=== PATIENT | male | born 1970 | race Two or more races ===

== ENCOUNTER 2023-01-05 10:21 | Emergency (ER) | payer OTHER ==
[~2023-01-05] VITALS: Ht 177.8 cm; Wt 80.3 kg
[2023-01-05] MEDS ORDERED: GLUMETZA500 MG (10:49)
[2023-01-05] MEDS ORDERED: AVAPRO75 MG PO (10:49)
[2023-01-05] MEDS ORDERED: FOLIC ACID0.8 M1 (10:50)
[2023-01-05] MEDS ORDERED: ADULT LOW DOSE81 M1 (10:50)
[2023-01-05] MEDS ORDERED: LIPITOR20 MG PO (10:50)
[2023-01-05] MEDS ORDERED: FARXIGA10 MG PO (10:50)
[2023-01-05] MEDS ORDERED: CLONAZEPAM2 MG PO (10:51)
== END 2023-01-05 14:35 | disposition home or self-care (01) ==
LOC: ER 10:21
DX: N39.0 Urinary tract infection, site not specified (principal); E11.9 Type 2 diabetes mellitus without complications; Z79.84 Long term (current) use of oral hypoglycemic drugs; I10 Essential (primary) hypertension; Z88.8 Allergy status to other drugs, medicaments and biological substances; Z20.822 Contact with and (suspected) exposure to COVID-19

== ENCOUNTER 2024-01-31 12:39 | Emergency (ER) | payer OTHER ==
[~2024-01-31] VITALS: Ht 177.8 cm; Wt 74.8 kg
[~2024-01-31 12:39] MED LIST: ADULT LOW DOSE81 M1; AVAPRO75 MG PO; CLONAZEPAM2 MG PO; FARXIGA10 MG PO; FOLIC ACID0.8 M1; GLUMETZA500 MG; LIPITOR20 MG PO
[2024-01-31] MEDS ORDERED: VASOTEC10 MG (13:02)
== END 2024-01-31 14:13 | disposition home or self-care (01) ==
LOC: ER 12:41
DX: R53.81 Other malaise (principal); K86.89 Other specified diseases of pancreas; Z91.041 Radiographic dye allergy status

== ENCOUNTER 2024-09-24 18:14 | Inpatient (IN) | payer OTHER ==
[~2024-09-24] VITALS: Ht 177.8 cm; Wt 77.1 kg
[~2024-09-24 18:14] MED LIST changes: +VASOTEC10 MG
[2024-09-24] MEDS ORDERED: XIGDUO XR 10 M1 EAC1 PO (18:43)
--- NOTE | 2024-09-24 18:43 | NUR ---
PTE ALERTA Y ORIENTADO X3. REFIERE DOLOR ABDOMINAL DESDE KAREN. SE FAUSTO SV Y SE UBICA
[2024-09-24] MEDS ORDERED: FAMOTIDINE/PF 20 MG in 0.9 % SODIUM CHLORIDE 8 ML IV PUSH STA (18:57)
[2024-09-24] MEDS ORDERED: 0.9 % SODIUM CHLORIDE 1,000 ML IV SCH ×2 (19:00→22:30)
[2024-09-24] MEDS ORDERED: MORPHINE SULFATE 4 MG/ML VIAL IV ONE (19:00)
[2024-09-24] MEDS ORDERED: FAMOTIDINE/PF 20 MG/2 ML VIAL ONE (19:18)
--- NOTE | 2024-09-24 19:27 | NUR ---
SE ORIENTA A PTE SOBRE TX MEDICO,REFIERE ACEPTAR. SE CANALIZA Y SE COLECTAN MUESTRAS DE LAB. SE ADMINSITRAN MEDS ABBIE ORDEN MEDICA, SE NOTIFICA CT PENDIENTE
[2024-09-24 19:35] LABS: HEMATOCRIT 46.9 % (39.0-48.0); HEMOGLOBIN 16.4 g/dL (13-16.00); MEAN CELL VOLUME 85.8 fL (80.0-100.00); MEAN CORPUSCULAR HEMOGLOBIN 30.1 pg (27.00-32.0); MEAN CORPUSCULAR HGB CONC 35.1 g/dl (32.0-36.0); PLATELET COUNT 373 K/uL (150-450); RED BLOOD COUNT 5.46 M/uL (4.00-6.00); RED CELL DISTRIBUTION WIDTH 14.1 % (11.5-14.5)
[2024-09-24 19:46] LABS: ALBUMIN 3.9 gm/dL (3.4-5.0); BILIRUBIN TOTAL 0.41 mg/dL (0.3-1.2); CALCIUM 9.7 mg/dL (8.5-10.1); CREATININE SERUM 0.78 mg/dL (0.70-1.30); GFR 103.34; GLOBULINA 3.8 G/DL (2.4-3.5); POTASSIUM 4.01 mEq/L (3.5-5.1); TOTAL PROTEIN 7.7 gm/dL (6.4-8.2)
[2024-09-24] MEDS ORDERED: PIPERACILLIN/TAZOBACTAM SODIUM 3.375 GM VIAL IV ONE ×2 (21:30→22:24)
[2024-09-24] MEDS ORDERED: FAMOTIDINE/PF 20 MG in 0.9 % SODIUM CHLORIDE 8 ML IV PUSH SCH (22:22)
[2024-09-24] MEDS ORDERED: CLONAZEPAM 1 MG TABLET PO SCH (22:23)
[2024-09-24] MEDS ORDERED: ACETAMINOPHEN 500 MG GEL..CAP PO PRN (22:30)
[2024-09-24] MEDS ORDERED: KETOROLAC TROMETHAMINE 15 MG VIAL IU ONE (22:30)
[2024-09-24] MEDS ORDERED: MORPHINE SULFATE 4 MG/ML CARTRIDGE IV PRN (22:30)
[2024-09-24] MEDS ORDERED: ONDANSETRON HCL 4 MG in 0.9 % SODIUM CHLORIDE 50 ML IV PRN (22:30)
[2024-09-25] MEDS ORDERED: PIPERACILLIN/TAZOBACTAM SODIUM 3.375 GM in DEXTROSE 5 % IN WATER 100 ML IV SCH
[2024-09-25 04:00] VITALS: BP 113/69; O2SAT 97
[2024-09-25 04:08] LABS: PH,URINE 5.5 (5.0-8.0); URINE APPEARANCE Clear; URINE BILIRRUBIN Negative (NEGATIVE); URINE BLOOD Trace; URINE COLOR Yellow; URINE KETONE 15 (NEGATIVE); URINE LEUKOCYTE Negative; URINE NITRATE Negative; URINE PROTEIN Negative (NEGATIVE); URINE UROBILINOGEN 0.2 E.U./dl
[2024-09-25 04:11] LABS: URINE BACTERIA 7.3 uL (0.0-1933); URINE EPITHELIAL CELLS 3.1 uL (0.0-38.8); URINE RBC 6.3 uL (0.0-20.8); URINE WBC 1.8 uL (0.0-23.2)
[2024-09-25 04:58] LABS: URINE GLUCOSE >=1000 MG/DL (NEGATIVE)
[2024-09-25 05:16] LABS: PARTIAL THROMBOPLASTIN TIME 26.5 SECONDS (22.0-34.0); PROTHROMBIN TIME 10.9 SECONDS (9.0-11.5)
[2024-09-25] MEDS ORDERED: ENALAPRIL MALEATE 10 MG TABLET PO SCH (09:00)
[2024-09-25] MEDS ORDERED: ENOXAPARIN SODIUM 40 MG/0.4 ML SYRINGE SUBCUTANEO SCH (09:00)
[2024-09-25 10:02] VITALS: BP 105/58; O2SAT 91
[2024-09-25] MEDS ORDERED: DEXTROSE 50 % IN WATER 0.5 G/ML VIAL IV PRN (11:30)
[2024-09-25] MEDS ORDERED: INSULIN LISPRO 1,000 UNIT/10 ML UNITS SUBCUTANEO PRN (11:30)
[2024-09-25] MEDS ORDERED: PIPERACILLIN/TAZOBACTAM SODIUM 3.375 GM VIAL IV ONE (13:26)
[2024-09-25 17:08] VITALS: BP 107/76
[2024-09-26 03:34] VITALS: BP 115/70; O2SAT 95
[2024-09-26 09:15] VITALS: BP 107/73; O2SAT 97
[2024-09-26 17:37] VITALS: BP 125/80
[2024-09-27 03:45] VITALS: BP 109/72; O2SAT 96
[2024-09-27] MEDS ORDERED: DEXTROSE 5%-WATER 100ML IV.SOLN ONE (04:56)
[2024-09-27 08:40] VITALS: BP 129/80
[2024-09-27] MEDS ORDERED: LACTOBACILLUS ACIDOPHILUS 1 CAP CAP PO SCH (17:00)
== END 2024-09-27 15:40 | disposition home or self-care (01) | DRG 391 ==
LOC: ER 18:14 → MEDI 09-25 01:00
PROVIDERS: General Practice; ADMIT Internal Medicine; ATTEND Internal Medicine
PROC: BW21ZZZ Computerized Tomography (CT Scan) of Abdomen and Pelvis (ICD-10-PCS; principal; 2024-09-24)
DX: K52.9 Noninfective gastroenteritis and colitis, unspecified (principal); K85.90 Acute pancreatitis without necrosis or infection, unspecified; I10 Essential (primary) hypertension; E11.9 Type 2 diabetes mellitus without complications; Z79.4 Long term (current) use of insulin; E78.5 Hyperlipidemia, unspecified